=== PATIENT | female | born 1990 | race Two or more races ===

== ENCOUNTER 2018-11-30 21:48 | Emergency (ER) | payer BC, MEDICAID ==
--- NOTE | 2018-12-01 00:51 | ER Document Report ---
ED Medical Screen (RME) - General Chief Complaint: Allergic Reaction Stated Complaint: RASH Time Seen by Provider: 12/01/18 00:46 Mode of Arrival: Ambulatory Information source: Patient Notes: 28-year-old female presents to ED for complaint of hives for at least a month that have gotten worse in the last 2 weeks. She states she has a doctor's appointment on 08 December. She states she has been taking Benadryl and Zyrtec with no relief. She is alert oriented respirations regular and unlabored speaking in full sentences walks with a even steady gait. She states she has not changed any food or any lotions potions or laundry soap. She states she does not know why she is breaking out in hives. I did give her ice pack to rub on the hives so she could quit scratching the hives which are making them worse. I have greeted and performed a rapid initial assessment of this patient. A comprehensive ED assessment and evaluation of the patient, analysis of test results and completion of medical decision making process will be conducted by an additional ED providers. Dictation of this chart was performed using voice recognition software; therefore, there may be some unintended grammatical errors. Physical Exam - Vital signs Vitals: Temp Pulse Resp BP Pulse Ox 99.0 F 100 16 144/82 H 99 11/30/18 22:16 11/30/18 22:16 11/30/18 22:16 11/30/18 22:16 11/30/18 22:16 Course - Vital Signs Vital signs: Temp Pulse Resp BP Pulse Ox 99.0 F 100 16 144/82 H 99 11/30/18 22:16 11/30/18 22:16 11/30/18 22:16 11/30/18 22:16 11/30/18 22:16
[2018-12-01] MEDS ORDERED: ONDANSETRON 4 MG TAB.RAPDIS PO ONE (01:57)
[2018-12-01] MEDS ORDERED: PREDNISONE 20 MG TABLET PO ONE (01:58)
[2018-12-01] MEDS ORDERED: DIPHENHYDRAMINE HCL 50 MG CAPSULE PO ONE (01:58)
[2018-12-01] MEDS ORDERED: FAMOTIDINE 20 MG TABLET PO ONE (01:58)
[2018-12-01 06:03] VITALS: BP 125/71
--- NOTE | 2018-12-01 08:36 | ER Document Report ---
Entered by PITER CARRASCO SCRIBE 12/01/18 0530 Acting as scribe for:ISRA VILLA DO ED General - General Chief Complaint: Allergic Reaction Stated Complaint: RASH Time Seen by Provider: 12/01/18 00:46 Primary Care Provider: ASHLEY CORONEL MD [ACTIVE STAFF] - Follow up as needed JOSELINE SOLITARIO MD [ACTIVE STAFF] - Follow up as needed Mode of Arrival: Ambulatory Notes: Patient is a 28-year-old female presenting to the emergency department complaining of a rash that has been going on for the past month that she assumes is from an allergic reaction. Patient has been taking Benadryl and Zyrtec to help with this which causes some improvement however her symptoms have recently worsened. Patient states that she felt dizzy last night sitting on her bed, and that she stood up feeling fine then fainted after taking 2 steps. at bedside states that she fell straight to the ground, after a short moment she was able to stand back up fine but was dazed for a moment. Patient states that she fainted 2 days ago, and she has been experiencing a swollen tongue, and rashy welts on her face. Patient states she vomited the other day, she was choking on liquid when her tongue swelled up. states that she has had wheezing as well. Only new exposure the patient admits is to cat litter. Otherwise denies any new lotions, soaps, new medications. 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 Past Medical History - General Information source: Patient - Social History Smoking Status: Never Smoker Cigarette use (# per day): No Chew tobacco use (# tins/day): No Frequency of alcohol use: None Drug Abuse: None Family History: Reviewed & Not Pertinent Review of Systems - Review of Systems Constitutional: No symptoms reported EENT: No symptoms reported Cardiovascular: See HPI, Dizziness Respiratory: See HPI, Wheezing, Other - choking on liquid Gastrointestinal: See HPI, Vomiting. denies: Abdominal pain Genitourinary: No symptoms reported Female Genitourinary: No symptoms reported Musculoskeletal: No symptoms reported Skin: See HPI, Rash Hematologic/Lymphatic: No symptoms reported Neurological/Psychological: No symptoms reported -: Yes All other systems reviewed and negative Physical Exam - Vital signs Vitals: Temp Pulse Resp BP Pulse Ox 99.0 F 100 16 144/82 H 99 07/15/19 22:16 11/30/18 22:16 11/30/18 22:16 11/30/18 22:16 11/30/18 22:16 - Notes Notes: PHYSICAL EXAM GENERAL: Alert, interacts well. No acute distress. HEAD: Normocephalic. Atraumatic. EYES: Pupils equal, round, and reactive to light. Extraocular movements intact. ENT: Geographic tongue. Oral mucosa moist, tongue midline. NECK: Full range of motion. Supple. Trachea midline. No airway edema. LUNGS: Clear to auscultation bilaterally, no wheezes, rales, or rhonchi. No respiratory distress. HEART: Regular rate and rhythm. No murmurs, gallops, or rubs. ABDOMEN: Soft, non-tender. Non-distended. Bowel sounds present in all 4 quadrants. No guarding, rigidity, or rebound. EXTREMITIES: Moves all 4 extremities spontaneously. No edema, No cyanosis. NEUROLOGICAL: Alert and oriented x3. Normal speech. Biceps and patellar DTRs 2+ bilaterally. PSYCH: Normal affect, normal mood. SKIN: Diffuse moderate urticaria scattered across the chest, abdomen, pelvis, arms and legs. No dermatographia. No blistering, no vesicles, negative Nikolsky sign. Course - Re-evaluation Re-evalutation: 12/01/18 05:31 No signs of anaphylaxis at this time however she had some symptoms in the past. I do think it is very prudent to send her home with an EpiPen and start her on steroids with a taper. Patient is instructed to use the epipen if she develops any more tongue swelling, difficulty breathing, LOC or vomiting or diarrhea. Patient will continue to follow-up with her appointment on the with Dr. Jessica Shoemaker's APC and call [facility] in multispecialty clinic to see if she can set up an appointment with an enterprise account manager before then. Patient is instructed to continue taking the Zyrtec and the Benadryl and discharged home. - Vital Signs Vital signs: Temp Pulse Resp BP Pulse Ox 97.8 F 89 18 125/71 95 12/01/18 06:01 12/01/18 06:01 12/01/18 06:01 12/01/18 06:01 12/01/18 06:01 Discharge - Discharge Clinical Impression: Diffuse urticaria Allergic reaction Qualifiers: Encounter type: initial encounter Qualified Code(s): T78.40XA - Allergy, unspecified, initial encounter Condition: Stable Disposition: HOME, SELF-CARE Additional Instructions: Right now I am not exactly sure what is causing your hives and your swelling. It is likely an allergic reaction and since the kit litter is the only new thing you have been exposed to I would recommend changing back to your old brand of kit litter. Please continue taking the Benadryl as needed up to every 6 hours and the Zyrtec once a day. Take the steroids have prescribed as directed until they are gone. I have prescribed you an EpiPen. If you develop tongue swelling, difficulty swallowing, difficulty breathing, become dizzy or have more vomiting or diarrhea please take the EpiPen and return to the emergency department. This could be a sign of anaphylaxis. Please keep your initial appointment with Dr. Shoemaker's office and please call [facility] multispecialty clinic to try and arrange an appointment with her enterprise account manager. Sometimes it can take over a month to get an appointment so it is important that you call as soon as possible. Prescriptions: Epinephrine 0.3 mg IJ PRN PRN #1 [email or web address] PRN Reason: allergic reaction Prednisone [Deltasone 10 mg Tablet] 10 mg PO ASDIR PRN #21 tablet PRN Reason: Referrals: JOSELINE SOLITARIO MD [ACTIVE STAFF] - Follow up as needed ASHLEY CORONEL MD [ACTIVE STAFF] - Follow up as needed I personally performed the services described in the documentation, reviewed and edited the documentation which was dictated to the scribe in my presence, and it accurately records my words and actions.
== END 2018-12-01 06:11 | disposition home or self-care (01) ==
LOC: ER 21:48
DX: T78.40XA Allergy, unspecified, initial encounter (principal); L50.9 Urticaria, unspecified; R21 Rash and other nonspecific skin eruption; R42 Dizziness and giddiness
CPT/HCPCS: 99282; S0119; J7512